=== PATIENT | female | born 1995 | race Caucasian/White ===

== ENCOUNTER 2019-04-09 15:07 | Emergency (ER) | payer SELFPAY ==
[~2019-04-09] VITALS: Ht 160 cm; Wt 54.4 kg
== END 2019-04-09 15:24 | disposition home or self-care (01) ==
LOC: ED 15:07
DX: L98.8 Other specified disorders of the skin and subcutaneous tissue (principal)

== ENCOUNTER 2019-05-20 15:14 | Emergency (ER) | payer SELFPAY ==
[~2019-05-20] VITALS: Ht 160 cm; Wt 54.4 kg
== END 2019-05-20 15:40 | disposition home or self-care (01) ==
LOC: ED 15:14
DX: Z00.8 Encounter for other general examination (principal)